=== PATIENT | female | born 1960 | race Caucasian/White ===

== ENCOUNTER 2017-03-16 21:55 | Emergency (ER) | payer BC ==
--- NOTE | 2017-03-16 22:14 | Emergency Department Record ---
History of Present Illness - General Chief Complaint: Headache Migraine Stated Complaint: QUIROZ Time Seen by Provider: 03/16/17 22:00 Source: Patient Mode of Arrival: Ambulatory Limitations: No limitations - History of Present Illness Initial Comments: 56 yo female presents with a "stress headache". She states she is under a lot of stress with a sick father and a sick grandchild. She has had similar stress headaches in the past several times. She woke this morning with a mild headache on the left side frontal that is pressure. She received new her grandchild was being readmitted to the hospital this afternoon and the headache increased throughout the evening. It is a pressure with some nausea. Similar to prior headaches. No vision changes, speech changes, walking difficulty, weakness, numbness, tingling or other new symptoms. There is a strong family history of migraines. MD Complaint: Headache -: Hour(s) (all day gradual onset) Onset Description: Gradual Location: Facial, Frontal Severity: Moderate Quality: Other (pressure) Consistency: Constant Improves With: Nothing Worsens With: Light - Related Data Home Medications Medication Instructions Recorded Confirmed Last Taken Gabapentin [Neurontin] 300 mg PO DAILY 03/16/17 03/16/17 03/16/17 Levothyroxine Sodium [Synthroid] 150 mcg PO DAILY 03/16/17 03/16/17 03/16/17 Tramadol HCl [Tramadol HCl] 50 mg PO Q6H PRN 03/16/17 03/16/17 03/16/17 Allergies Allergy/AdvReac Type Severity Reaction Status Date / Time aspirin Allergy RASH, Verified 03/16/17 22:14 swollen eyes erythromycin base Allergy RASH Verified 03/16/17 22:14 NSAIDS (Non-Steroidal Allergy RASH Verified 03/16/17 22:14 Anti-Inflamma prochlorperazine AdvReac agititation Verified 03/16/17 22:14 [From Compazine] Review of Systems Constitutional: Denies: Chills, Fever, Malaise, Weakness Eyes: Reports: Eye pain (pressure left frontal area). Denies: Eye discharge, Photophobia, Vision change ENT: Denies: Congestion, Ear pain, Epistaxis, Throat pain Respiratory: Denies: Cough, Dyspnea, Hemoptysis Cardiovascular: Denies: Chest pain, Syncope Endocrine: Denies: Fatigue Gastrointestinal: Reports: Nausea. Denies: Abdominal pain, Diarrhea, Vomiting Genitourinary: Denies: Dysuria, Urgency Musculoskeletal: Denies: Arthralgia, Back pain, Joint swelling, Myalgia, Neck pain Skin: Denies: Bruising, Change in color, Rash Neurological: Reports: As per HPI, Headache. Denies: Abnormal gait, Confusion, Numbness, Paresthesias, Seizure, Tingling, Tremors, Vertigo, Weakness Psychiatric: Denies: Anxiety Hematological/Lymphatic: Denies: Blood Clots, Easy bleeding, Easy bruising, Swollen glands Physical Exam - General General Appearance: Alert, Oriented x3, Cooperative, No acute distress Limitations: No limitations - Head Head exam: Atraumatic, Normocephalic, Normal inspection Head exam detail: negative: Abrasion, Contusion, General tenderness, Hematoma, Laceration, Tenderness of temporal artery - Eye Eye exam: Normal appearance, PERRL, EOMI, Periorbital tenderness (above the left eye "pressure"), Other (normal eye inspection). negative: Conjunctival injection, Nystagmus, Periorbital swelling, Scleral icterus Pupils: Normal accommodation. negative: Irregular, Miosis, Mydriatic, Unequal - ENT ENT exam: Normal exam, Mucous membranes moist, Normal orophraynx, TM's normal bilaterally Ear exam: Normal external inspection. negative: Auricular hematoma, Auricular trauma, External canal tenderness Nasal Exam: Normal inspection. negative: Discharge, Dried blood Mouth exam: Normal external inspection. negative: Drooling Teeth exam: Normal inspection Throat exam: Normal inspection. negative: Tonsillar erythema, Tonsillar exudate - Neck Neck exam: Normal inspection, Full ROM. negative: Lymphadenopathy, Meningismus , Tenderness - Respiratory Respiratory exam: Normal lung sounds bilaterally. negative: Respiratory distress - Cardiovascular Cardiovascular Exam: Regular rate, Normal rhythm, Normal heart sounds Peripheral Pulses: 2+: Radial (R), Radial (L) - Rectal Rectal exam: Deferred - exam: Deferred - Extremities Extremities exam: Normal inspection, Full ROM, Normal capillary refill. negative: Pedal edema, Tenderness - Back Back exam: Reports: Full ROM. Denies: Muscle spasm, Rash noted, Tenderness - Neurological Neurological exam: Alert, Altered, CN II-XII intact, Normal gait, Oriented X3, Reflexes normal, Other (No PND, normal coordination, clear speech). negative: Motor sensory deficit - Psychiatric Psychiatric exam: Normal affect, Normal mood. negative: Agitated, Anxious - Skin Skin exam: Dry, Intact, Normal color, Warm Course Vital Signs 03/16/17 22:02 Temperature 97.7 F Pulse Rate [ 54 L Pulse Ox Probe] Respiratory 18 Rate Blood Pressure 153/110 [Left Arm] Pulse Ox 99 - Reevaluation(s) Reevaluation #1: The patient is getting the infusion She is already getting some relief Will recheck again after infusion completed. 03/16/17 22:48 Reevaluation #2: The patient reports she is feeling much better with resolution of headache We discussed rest, home care and reasons to return to the ED for a recheck Her neurologic examination was normal as tested, gradual onset headache, resolved. DC stable 03/16/17 23:08 Disposition Disposition: Discharge Clinical Impression: Headache Qualifiers: Headache type: unspecified Headache chronicity pattern: acute headache Intractability: not intractable Qualified Code(s): R51 - Headache Disposition: Home, Self-Care Condition: (1) Good Instructions: Acute Headache (ED) Additional Instructions: Call your doctor Sunday for close follow up Return if you have any new symptoms, uncontrolled pain, dizziness, fever, any weakness, speech changes, vision changes Forms: Patient Portal Access Time of Disposition: 23:09 Quality - Quality Measures Quality Measures: Headache - Headache: Neuroimaging Quality Measure: Measure #419: Overuse of Neuroimaging Headache: Use of Neuroimaging: < CTA, CT, MRA or MRI was NOT ordered > [G9534] Neurological Exam: Patient had a normal neurological exam. [G9535] - Blood Pressure Screening View Details: Yes Blood Pressure Classification: Hypertensive Reading Systolic Measurement: 153 Diastolic Measurement: 110 Screening for High Blood Pressure: < Normal BP, F/U Not Required > [G8783] Normal BP Follow-up Interventions: No follow-up required First Hypertensive Follow-up Interventions: Referral to alternative/primary care provider.
[2017-03-16] MEDS ORDERED: METOCLOPRAMIDE HCL 10 MG/2 ML VIAL IVP ONE (22:15)
[2017-03-16] MEDS ORDERED: 0.9 % SODIUM CHLORIDE 1,000 ML BAG IV ONE (22:15)
[2017-03-16] MEDS ORDERED: DIPHENHYDRAMINE HCL IV 50 MG/ML VIAL IVP ONE (22:15)
== END 2017-03-16 23:25 | disposition home or self-care (01) ==
LOC: ER 21:55
DX: R51 Headache (principal); R11.0 Nausea
CPT/HCPCS: 96374; 96375; 99284; J1200; J2765; J7030

== ENCOUNTER 2017-10-08 19:07 | Emergency (ER) | payer BC ==
--- NOTE | 2017-10-08 20:24 | Emergency Department Record ---
History of Present Illness - General Chief Complaint: Headache Migraine Stated Complaint: MIGRAINE AND NAUSEA Time Seen by Provider: 10/08/17 20:16 Source: Patient Mode of Arrival: Ambulatory Limitations: No limitations - History of Present Illness Initial Comments: 56 yo female presents to ED for evaluation of "possible flu", reports headache and nausea symptoms. Patient denies health problems at her baseline, denies cough, abdominal pain, or fever symptoms. Patient does report myalgias on examination. MD Complaint: Headache Onset/Timin -: Days(s) Onset Description: Gradual Severity: Mild Severity scale (1-10): 5 Quality: Other Consistency: Constant Improves With: Nothing Worsens With: None Associated Symptoms: Nausea Treatments Prior to Arrival: Acetaminophen - Related Data Previous Rx's Medication Instructions Recorded Azithromycin [Zithromax] 250 mg PO DAILY #6 tablet 10/08/17 Allergies Allergy/AdvReac Type Severity Reaction Status Date / Time aspirin Allergy RASH, Verified 03/16/17 22:14 swollen eyes erythromycin base Allergy RASH Verified 03/16/17 22:14 NSAIDS (Non-Steroidal Allergy RASH Verified 03/16/17 22:14 Anti-Inflamma prochlorperazine AdvReac agititation Verified 03/16/17 22:14 [From Compazine] Travel Screening - Travel/Exposure Within Last 30 Days Have you traveled within the last 30 days?: No - Travel/Exposure Within Last Year Have you traveled outside the [place] in the last year?: No - Additonal Travel Details Have you been exposed to anyone with a communicable illness?: No Review of Systems Constitutional: Reports: Chills, Malaise, Weakness. Denies: Fever, Night sweats Eyes: Denies: Eye discharge, Eye pain ENT: Denies: Congestion, Ear pain, Epistaxis Respiratory: Denies: Cough, Dyspnea Cardiovascular: Denies: Chest pain, Dyspnea on exertion Endocrine: Denies: Fatigue, Heat or cold intolerance Gastrointestinal: Reports: Nausea. Denies: Vomiting Genitourinary: Denies: Incontinence, Retention Musculoskeletal: Denies: Arthralgia, Back pain, Gout, Joint swelling Skin: Denies: Bruising, Change in color Neurological: Reports: Headache. Denies: Abnormal gait, Confusion, Seizure Psychiatric: Denies: Anxiety Hematological/Lymphatic: Denies: Anemia, Blood Clots Past Medical History - SOCIAL HISTORY Smoking Status: Never smoker Alcohol Use: None Drug Use: None - RESPIRATORY Hx Respiratory Disorders: No - CARDIOVASCULAR Hx Cardio Disorders: No - NEURO Hx Neuro Disorders: No - GI Hx GI Disorders: Yes Hx Reflux: Yes - Hx Genitourinary Disorders: Yes Hx Kidney Stones: Yes - ENDOCRINE Hx Endocrine Disorders: Yes Hx Thyroid Disease: Yes (low) - MUSCULOSKELETAL Hx Musculoskeletal Disorders: Yes Hx Arthritis: Yes (back) Comment:: rotator cuff inj - PSYCH Hx Psych Problems: Yes Hx Anxiety: Yes - HEMATOLOGY/ONCOLOGY Hx Hematology/Oncology Disorders: No Family Medical History Any Significant Family History?: No Hx Diabetes: Father Hx Heart Disease: Father, Mother Hx Resp Disorders: Father Physical Exam - General General Appearance: Alert, Oriented x3, Cooperative, Mild distress Limitations: No limitations - Head Head exam: Atraumatic, Normocephalic, Normal inspection Head exam detail: negative: Abrasion, Contusion, Gudino's sign, General tenderness, Hematoma, Laceration - Eye Eye exam: Normal appearance. negative: Conjunctival injection, Periorbital swelling, Periorbital tenderness, Scleral icterus - ENT Ear exam: negative: Auricular hematoma, Auricular trauma Nasal Exam: negative: Active bleeding, Discharge, Dried blood, Foreign body Mouth exam: negative: Drooling, Laceration, Muffled voice, Tongue elevation Throat exam: negative: Tonsillar erythema, Tonsillomegaly, R peritonsillar mass , L peritonsillar mass - Neck Neck exam: Normal inspection. negative: Meningismus, Tenderness - Respiratory Respiratory exam: Normal lung sounds bilaterally. negative: Rales, Respiratory distress, Rhonchi, Stridor - Cardiovascular Cardiovascular Exam: Regular rate, Normal rhythm, Normal heart sounds - GI/Abdominal GI/Abdominal exam: Soft. negative: Rebound, Rigid, Tenderness - Rectal Rectal exam: Deferred - exam: Deferred - Extremities Extremities exam: Normal inspection. negative: Pedal edema, Tenderness - Back Back exam: Denies: CVA tenderness (R), CVA tenderness (L) - Neurological Neurological exam: Alert, Normal gait, Oriented X3 - Psychiatric Psychiatric exam: Normal affect, Normal mood - Skin Skin exam: Normal color. negative: Abrasion Type of lesion: negative: abrasion Course Vital Signs 10/08/17 20:13 Temperature 99.2 F Pulse Rate 85 Respiratory 20 Rate Blood Pressure 168/90 Pulse Ox 96 - Reevaluation(s) Reevaluation #1: 10/08/17 21:07 Influenza: Negative Patient was updated on her result, offered to perform chest radiography, patient declined. Will prescribe Zithromax to the pharmacy to be filled if symptoms fail to improve in 24-48 hours. Patient otherwise appears stable for discharge at this time. Disposition Disposition: Discharge Clinical Impression: URI (upper respiratory infection) Qualifiers: URI type: unspecified URI Qualified Code(s): J06.9 - Acute upper respiratory infection, unspecified Disposition: Home, Self-Care Condition: (2) Stable Instructions: Viral Syndrome (ED) Additional Instructions: Return to ED if your symptoms worsen or if you have any concerns. Tylenol/Motrin as needed for symptoms. Zithromax as directed. Follow-up with your family doctor in 3-5 days as directed. Prescriptions: Azithromycin [Zithromax] 250 mg PO DAILY #6 tablet Forms: Patient Portal Access Time of Disposition: 21:10 Quality - Quality Measures Quality Measures: N/A - Blood Pressure Screening Does Patient Have Any of the Following: No Blood Pressure Classification: Hypertensive Reading Systolic Measurement: 168 Diastolic Measurement: 90 Screening for High Blood Pressure: < First Hypertensive BP, F/U Documented > [ G8950] First Hypertensive Follow-up Interventions: Referral to alternative/primary care provider.
[2017-10-08 20:39] LABS: INFLUENZA A NEGATIVE (NEGATIVE); INFLUENZA B NEGATIVE (NEGATIVE)
[2017-10-08] MEDS ORDERED: AZITHROMYCIN 500 MG TABLET PO ONE (21:15)
== END 2017-10-08 21:21 | disposition home or self-care (01) ==
LOC: ER 19:07
DX: J06.9 Acute upper respiratory infection, unspecified (principal); R11.0 Nausea; R51 Headache
CPT/HCPCS: 87400; 99282